=== PATIENT | female | born 1990 | race African-American/Black ===

== ENCOUNTER 2018-06-09 01:02 | Emergency (ER) | payer BC ==
[~2018-06-09] VITALS: Ht 175.3 cm; Wt 156.2 kg
[2018-06-09 01:39] LABS: HEMATOCRIT 34.4 % (36.0-46.0); HEMOGLOBIN 11.2 G/DL (11.9-15.5); MCH 26.8 PG (29.0-34.0); MCHC 32.6 G/DL (30.0-36.0); MCV 82.3 FL (83-99); PLATELET COUNT 299 K/uL (156-360); RBC DIS.WIDTH-CV 12.9 % (11.8-14.6); RBC DIS.WIDTH-SD 38.9 % (39-53); RED BLOOD COUNT 4.18 M/uL (3.80-5.20)
[2018-06-09 01:53] LABS: CHLORIDE 102 mEq/L (99-109); POTASSIUM 3.7 mEq/L (3.7-5.4); SODIUM 139 mEq/L (136-147)
[2018-06-09 01:55] LABS: GLUCOSE 95 mg/dL (70-99)
[2018-06-09 01:58] LABS: CREATININE 0.8 mg/dL (0.6-1.3)
[2018-06-09 01:59] LABS: UREA NITROGEN (BUN) 6 mg/dL (9-23)
[2018-06-09 02:02] LABS: TROP-I INTERPRETATION NEGATIVE; TROPONIN-I < 0.01 ng/mL (0.0-0.30)
[2018-06-09 02:10] LABS: GFR ESTIMATE (CALCULATED) > 59 mL/min/
[2018-06-09 03:43] VITALS: BP 132/75
== END 2018-06-09 03:44 | disposition home or self-care (01) ==
LOC: EME 01:02
DX: R00.2 Palpitations (principal); F17.200 Nicotine dependence, unspecified, uncomplicated
CPT/HCPCS: 71046; 80048; 84484; 85027; 93005; 99281; 99284